=== PATIENT | female | born 1960 | race Caucasian/White ===

== ENCOUNTER 2017-04-16 12:16 | Emergency (ER) | payer OTHER ==
[2017-04-16 12:28] VITALS: BP 119/94; PULSE 109; TEMP 98.3; BMI 25.7
--- NOTE | 2017-04-16 12:42 | PDOC ---
History of Present Illness - General Chief Complaint: Vaginal Sxs Stated Complaint: PRIVATE Time Seen by Provider: 04/16/17 12:30 History Source: Patient Exam Limitations: No Limitations - History of Present Illness Initial Comments: CHIEF COMPLAINT: 56 y/o female c/o vaginal pain for the past 4 days. HISTORY OF PRESENT ILLNESS: She states her vagina is swollen and when she wiped this morning there was a little bit of blood. She states it also hurts when she walks. She denies f/c, n/v/d, CP, SOB, abd pain, back pain, hematuria , dysuria, vaginal itching, abnormal vaginal discharge/bleeding, rashes. She admits she just found out her is a sex addict. She has known about prior incidences of his infidelity and has been tested for all STDs, HIV, etc, but the last time she was tested was 6 months ago and was negative for everything. She is concerned because she has had unprotected sex with him in the past 6 months and she just found out about his recent sexual activities with multiple other partners. Vital signs on arrival are notable for pulse of 109. REVIEW OF SYSTEMS: GENERAL/CONSTITUTIONAL: No fever/chills. No weakness. No weight change. HEAD, EYES, EARS, NOSE AND THROAT: No change in vision. No ear pain or discharge. No sore throat. CARDIOVASCULAR: No chest pain or shortness of breath. RESPIRATORY: No cough, wheezing, or hemoptysis. GASTROINTESTINAL: No abd pain, nausea, vomiting, diarrhea. GENITOURINARY: No dysuria, frequency, or change in urination. +vaginal swelling and pain. MUSCULOSKELETAL: No joint or muscle swelling or pain. No neck or back pain. SKIN: No rash or easy bruising. NEUROLOGIC: No headache, vertigo, loss of consciousness, or loss of sensation. PHYSICAL EXAM: GENERAL: The patient is awake, alert, and fully oriented, in no acute distress. She is well appearing and ambulatory. HEAD: Normal with no signs of trauma. ENT: Pupils equal, round and reactive to light, extraocular movements intact, sclera anicteric, conjunctiva clear. Neck supple. LUNGS: Clear to auscultation bilaterally. Normal excursion. No respiratory distress or use of accessory muscles. CV: RRR, S1/S2, no MRG. Cap refill < 2 sec. ABDOMEN: Soft, non-distended, non-tender even to deep palpation, no hepatomegaly or splenomegaly, no masses. VAGINAL: Very small, erythematous, edematous area inside of left labia minora, close to the clitoris that is TTP. Appears to be a very small abscess. No other lesions, lacerations, area of swelling. EXTREMITIES: Normal range of motion, no edema. NEUROLOGICAL: Normal speech, normal gait. CN II-XII grossly intact. PSYCH: Normal mood, normal affect. SKIN: Warm, dry, normal turgor, no rashes or lesions noted. Past History - Past Medical History Allergies/Adverse Reactions: Allergies Allergy/AdvReac Type Severity Reaction Status Date / Time ibuprofen [From Motrin] Allergy Intermediate Swelling Verified 04/16/17 12:26 Home Medications: Ambulatory Orders Pantoprazole Sodium [Protonix] 40 mg PO DAILY 01/22/13 Oxycodone HCl/Acetaminophen [Percocet 5-325 mg Tablet] 1 combo PO Q4H PRN #0 tablet 04/13/13 Oxycodone HCl/Acetaminophen [Percocet 5-325 mg Tablet] 2 combo PO Q4H PRN #0 tablet 04/13/13 Sulfamethoxazole/Trimethoprim [Bactrim *Ds*] 1 tab PO BID #28 tablet 04/13/13 Sulfamethoxazole/Trimethoprim [Bactrim Ds -] 1 tab PO BID #14 tablet 04/16/17 Varenicline Tartrate [Chantix] 1 each PO ASDIR #1 tab.ds.pk 04/16/17 Anemia: No Asthma: No Cancer: No (rt breast) Cardiac Disorders: No CVA: No COPD: No CHF: No Dementia: No Diabetes: No GI Disorders: Yes (GERD/HX H-PYLORI/ULCER X 01/2012) Disorders: No HTN: No Hypercholesterolemia: No Liver Disease: No Seizures: No Thyroid Disease: No - Surgical History Abdominal Surgery: Yes (2011-[facility]) Appendectomy: No Cardiac Surgery: No Cholecystectomy: No Lung Surgery: No Neurologic Surgery: No Orthopedic Surgery: No - Psycho/Social/Smoking Cessation Hx Suicidal Ideation: No Smoking History: Never smoked Have you smoked in the past 12 months: No Number of Cigarettes Smoked Daily: 10 If you are a former smoker, when did you quit?: 05/2012 Information on smoking cessation initiated: No Hx Alcohol Use: No Drug/Substance Use Hx: No Substance Use Type: None Hx Substance Use Treatment: No *Physical Exam - Vital Signs Last Vital Signs Temp Pulse Resp BP Pulse Ox 98.3 F 109 H 18 119/94 98 04/16/17 12:26 04/16/17 12:26 04/16/17 12:26 04/16/17 12:26 04/16/17 12:26 Medical Decision Making - Medical Decision Making A/P: 56 y/o afebrile female here with very small vaginal abscess and for STD testing. The patient does not want to wait for HIV results so she is refusing that test. Plan is as follows: 1. Labs for herpes and syphillis 2. UA/culture 3. GC/chlamydia The patient will be sent and rx for bactrim. Suggested she apply hot compresses to affected area multiple times per day. She is also asking for a prescription for chantix. Will send. Instructed patient that we will call her with any abnormal results. Pt instructed to return to the ER with any worsening or concerning symptoms and abstain for sexual intercourse for at least 1 week. The patient verbalizes understanding of all instructions, has no further questions and is awaiting discharge. *DC/Admit/Observation/Transfer Diagnosis at time of Disposition: Encounter for screening examination for sexually transmitted disease, Abscess of vagina - Discharge Dispostion Disposition: HOME Condition at time of disposition: Good - Patient Instructions Printed Discharge Instructions: DI for Skin Abscess, Facts About Sexually Transmitted Infections Additional Instructions: Discharge Instructions: -A prescription has been sent to your pharmacy for antibiotics; please take as prescribed -Apply hot compresses to affected area multiple times per day -Someone from the ER will call you with any abnormal lab results -Please follow up with your regular doctor for HIV testing -Return to the ER with any worsening or concerning symptoms
[2017-04-16 13:31] LABS: URINE APPEARANCE CLEAR; URINE BILIRUBIN NEGATIVE (NEGATIVE); URINE BLOOD NEGATIVE (NEGATIVE); URINE COLOR STRAW; URINE GLUCOSE (UA) NEGATIVE (NEGATIVE); URINE KETONE NEGATIVE (NEGATIVE); URINE LEUK ESTERASE TRACE (NEGATIVE); URINE NITRITE NEGATIVE (NEGATIVE); URINE PROTEIN NEGATIVE (NEGATIVE); URINE UROBILINOGEN NEGATIVE mg/dL (0.2-1.0)
[2017-04-16 13:53] LABS: URINE RBC <1 /hpf (0-3); URINE WBC 1 /hpf (3-5)
[2017-04-16 15:04] LABS: HIV 1 & 2 AB NEGATIVE; HIV 1 AGp24 NEGATIVE
[2017-04-19 12:18] LABS: HSV 2 DNA. NEGATIVE
== END 2017-04-16 13:41 | disposition home or self-care (01) ==
LOC: JERFT 12:16
DX: Z11.3 Encounter for screening for infections with a predominantly sexual mode of transmission (principal); N76.0 Acute vaginitis; K21.9 Gastro-esophageal reflux disease without esophagitis; Z98.84 Bariatric surgery status; Z87.891 Personal history of nicotine dependence
CPT/HCPCS: 36415; 81003; 81015; 86593; 87086; 87389; 87491; 87529; 87591; 99281-25

== ENCOUNTER 2017-12-30 09:35 | Day surgery (SDC) | payer SELFPAY ==
[2017-12-27 15:27] VITALS: BMI 25.2
[2017-12-30] MEDS ORDERED: HEPARIN NA (PORCINE) 5,000 UNITS/ML 1ML VIAL ONE (10:27)
[2017-12-30] MEDS ORDERED: BUPIVACAINE HCL/PF 2.5 MG/ML - 30 ML VIAL IJ ONE (12:55)
[2017-12-30] MEDS ORDERED: BACITRACIN 15 GM TUBE TOPICAL OINTMENT ONE (12:55)
[2017-12-30] MEDS ORDERED: oxyCODONE HCL 5 MG TABLET PO PRN (13:10)
[2017-12-30] MEDS ORDERED: ONDANSETRON 4 MG/2 ML VIAL IVPUSH PRN (13:10)
[2017-12-30] MEDS ORDERED: LACTATED RINGERS SOLUTION 1,000 ML IV SCH ×2 (13:15→18:15)
[2017-12-30] MEDS ORDERED: PROPOFOL 20 ML ONE ×3 (13:15→16:29)
[2017-12-30] MEDS ORDERED: MIDAZOLAM HCL 2 MG/2 ML SINGLE DOSE VIAL ONE ×2 (13:15→16:24)
[2017-12-30] MEDS ORDERED: LIDOCAINE HCL/PF 2% SDV 5ML VIAL ONE ×3 (13:17→16:24)
[2017-12-30] MEDS ORDERED: DEXAMETHASONE SOD PHOSPHATE 4 MG/1 ML VIAL ONE ×2 (13:17→14:47)
[2017-12-30] MEDS ORDERED: KETOROLAC TROMETHAMINE 30 MG/1 ML VIAL ONE (13:17)
[2017-12-30] MEDS ORDERED: ROCURONIUM BROMIDE 50 MG/5 ML VIAL ONE ×3 (13:18→16:35)
[2017-12-30] MEDS ORDERED: EPINEPHrine/PF 1 MG/1 ML (1:1,000) AMPULE ONE (13:34)
[2017-12-30] MEDS ORDERED: LIDOCAINE HCL 1%, 10 MG/ML (20ML VIAL) ONE (13:34)
[2017-12-30] MEDS ORDERED: SUCCINYLCHOLINE CHLORIDE 200 MG/10 ML VIAL ONE (14:47)
[2017-12-30] MEDS ORDERED: ONDANSETRON 4 MG/2 ML VIAL ONE ×2 (14:47→16:53)
[2017-12-30] MEDS ORDERED: GLYCOPYRROLATE 0.2 MG/1 ML VIAL ONE (15:23)
[2017-12-30] MEDS ORDERED: NEOSTIGMINE METHYLSULFATE 0.5 MG/ML - 10 ML MDV ONE (15:23)
[2017-12-30] MEDS ORDERED: ePHEDrine SULFATE 50 MG/1 ML AMPULE ONE (16:31)
[2017-12-30] MEDS ORDERED: ONDANSETRON 4 MG/2 ML VIAL IVPB PRN (18:04)
--- NOTE | 2017-12-30 18:18 | OP ---
Operative Note - Note: Operative Date: 12/30/17 Pre-Operative Diagnosis: abdominal deformity Operation: abdominoplasty with flank liposuction Post-Operative Diagnosis: Same as Pre-op Surgeon: Britton Scott Anesthesia: General Drains & Tubes with Location: ANDRES x 2 abdomen
[2017-12-30] MEDS ORDERED: oxyCODONE HCL 5 MG TABLET ONE (19:12)
[2017-12-30] MEDS ORDERED: oxyCODONE HCL 5 MG TABLET PO ONE (19:14)
--- NOTE | 2017-12-30 19:59 | OP ---
DATE OF OPERATION: 12/30/2017 TITLE OF PROCEDURE: Abdominoplasty with bilateral flank liposuction. PREOPERATIVE DIAGNOSIS: Abdominal deformity. POSTOPERATIVE DIAGNOSIS: Abdominal deformity. ATTENDING SURGEON: Britton Kerns MD ASSISTANTS: None. Patient seen in the holding area, counseled on all risks, benefits, and alternatives to the procedure, understands and agrees to proceed. PROCEDURE: She is given 5000 units of subcutaneous heparin preoperatively. CATHLEEN hose and sequential compression stockings are applied in the holding area. She is awake and aware of all incisions and resulting scars. Brought to the operating room and placed in supine position. Position was checked by surgical and anesthesia teams. She was given 2 g of Ancef. After anesthesia is given, she is prepped and draped in standard surgical fashion. A timeout is called. Patient, procedure, side, and sites are verified. Incision is made 4 cm inferior to the infrapannicular crease in order to achieve a lift of the mons pubis. Dissection is carried down to the level of the abdominal wall fascia where all blood vessels are either cautery ligated or suture ligated. Once along the abdominal wall fascia, dissection is carried along the abdominal wall fascia superiorly until the level of the umbilicus. All perforating blood vessels are either cautery ligated or suture ligated. The umbilicus is then circumcised and developed on a fibrofatty stalk to the level of the abdominal wall fascia. Dissection is then continued cephalad to the costal margins bilaterally and xiphoid process in the midline. At this point, a midline plication is performed. It is performed with a series of interrupted, buried No. 1 Prolene figure-of-8 sutures, a row superior to the umbilicus and a second row inferior to the umbilicus. A second layer running locking No. 1 Prolene suture is then applied superior and inferior to the umbilicus. Wide berth is given to the umbilicus for translocation. It is noted that there is still a mid-abdominal bulge laterally on both sides, which is actually more pronounced on the patient's right. This is consistent with her preoperative exam. To address this, a transverse row of plication with a running locking No. 0 Prolene suture with all knots buried is performed on each the right and the left. A more aggressive plication is performed on the right as well as several accessory [id number] Prolene sutures on the right until a symmetric, even contour of the abdomen is achieved. Hemostasis is once again meticulously assured. The wounds are irrigated with normal saline. Patient is then brought to a 30-degree flexed position where the skin fat of the abdominoplasty flaps is transposed and excess is excised. Closure is able to be performed without tension or evidence of tissue ischemia. With the skin tailor tacked with nabeel, the position of the umbilicus is marked. A Star Trek pattern defect is made for umbilical translocation. The umbilicus is translocated through this. It is converted into a triangular pattern with an inferior 6 o'clock notch to receive the 6 o'clock flap of the Star Trek pattern. The apices of these patterns are secured with 3-0 nylon suture. The remainder is closed with a series of interrupted, buried, deep dermal 3-0 Monocryl suture, followed by a running 4-0 chromic suture. Size 10 flat drains are brought out through the surgical wound. The right drain is in the superior extent of the abdomen. The left drain is in the inferior extent of the abdomen. The drains are secured with 2-0 silk drain sutures. Bilateral dog ears are required to be excised which are done on either end of the incision prior to closure. Wetting solution is then infiltrated into either flank. The total amount of wetting solution infiltrated is 600 mL. This is a liter of normal saline with 20 mL of 1% lidocaine plain and 1 ampule 1:1000 epinephrine. The standard infiltration system is used. A full 25 minutes is awaited prior to performing liposuction. During this time, closure of the abdominal wall is performed with a series of interrupted, superficial fascial system, Osei layer of buried 2-0 Vicryl suture, followed by a series of interrupted, buried, deep dermal 3-0 Monocryl sutures. Prior to running a subcuticular, the liposuction is performed with a combination of 3 and 4-mm cannulas. Traditional standard liposuction is used. Total liposuction aspirate is 250 mL of liposuction aspirate from each flank. The endpoint is smooth even contour. The final closure is in the running dermal 4-0 Monocryl V-Loc suture, followed by several interrupted 4-0 nylon sutures within the skin. All tissues are pink and viable at the end of the procedure. The umbilicus is dressed with bacitracin and Xeroform. The abdominal incisions are dressed with 1/2-inch Steri-Strips. Drains were placed to bulb suction. An abdominal binder is applied. Patient is awoken from anesthesia, having tolerated the procedure well. There was no . She is transferred onto a flexed hospital bed. BRITTON KERNS M.D. [id number]
[2017-12-30] MEDS: CEFAZOLIN 1 GM/D5W 1 GM/50 ML BAG IVPB SCH (20:19)
[2017-12-30] MEDS ORDERED: ZOLPIDEM TARTRATE 5 MG TABLET PO PRN (21:07)
[2017-12-30] MEDS: HEPARIN NA (PORCINE) 5,000 UNITS/ML 1ML VIAL SQ SCH (22:03)
[2017-12-30] MEDS: oxyCODONE HCL 5 MG TABLET PO PRN (23:24)
[2017-12-31] MEDS: CEFAZOLIN 1 GM/D5W 1 GM/50 ML BAG IVPB SCH ×2 (02:18→09:30)
[2017-12-31] MEDS: oxyCODONE HCL 5 MG TABLET PO PRN ×3 (04:14→11:59)
[2017-12-31] MEDS: morphine SULFATE 4 MG/ML VIAL IVPUSH PRN ×2 (04:53→09:30)
[2017-12-31] MEDS: HEPARIN NA (PORCINE) 5,000 UNITS/ML 1ML VIAL SQ SCH (09:18)
[2017-12-31] MEDS ORDERED: PANTOPRAZOLE 40 MG TABLET (FP) PO SCH (10:00)
[2017-12-31] MEDS ORDERED: DOCUSATE SODIUM 100 MG CAPSULE (FP) PO PRN (11:13)
--- NOTE | 2017-12-31 11:20 | PN ---
Progress Note (short form) - Note Progress Note: Healing well, no collections, all ANDRES working well. All tissues viable. C/o spasm and GERD Plan for OOB and heparin SQ this morning. REstart protonix and colace Plan for discharge later today.
[2017-12-31] MEDS ORDERED: CYCLOBENZAPRINE HCL 10 MG TABLET (FP) PO SCH (14:00)
[2017-12-31 14:08] VITALS: BP 130/77; PULSE 74; TEMP 99
[2017-12-31] MEDS ORDERED: diphenhydrAMINE HCL 25 MG CAPSULE (FP) PO ONE (15:00)
--- NOTE | 2018-01-05 19:16 | PATH ---
Surgical Pathology Report Patient Name: GAGE DUNAWAY [facility]. Rec. #: [id number] /Age/Gender: 1960 (Age: 57) / F Account: [id number] Location: [facility] Taken: 12/30/2017 Received: 12/30/2017 Reported: 01/05/2018 Physicians: Britton Scott Specimen(s) Received ABDOMINAL FAT AND SKIN Clinical History Cosmetic Final Diagnosis ABDOMINAL FAT AND SKIN, ABDOMINOPLASTY: SKIN AND ADIPOSE TISSUE, DESCRIBED (GROSS EXAMINATION ONLY). Electronically Signed Shauna Narvaez M.D. Gross Description Received in formalin labeled "abdominal fat and skin," is a 1539 g, 40.0 x 19.0 x 3.5 cm aggregate of 2 constantino, unoriented, triangular portions of skin with underlying yellow, lobulated soft tissue. The epidermal surfaces are unremarkable. Sectioning reveals yellow, lobulated adipose tissue. No discrete lesions are identified. No sections are submitted, gross only. /01/01/2018 [facility]01/01/2018
== END 2017-12-31 15:15 | disposition home or self-care (01) ==
LOC: FASU 09:35 → FM/S 18:04 → FASU 12-31 15:15
PROVIDERS: ATTEND Plastic Surgery
PROC: 0J083ZZ Alteration of Abdomen Subcutaneous Tissue and Fascia, Percutaneous Approach (ICD-10-PCS; 2017-12-30)
PROC: 0J080ZZ Alteration of Abdomen Subcutaneous Tissue and Fascia, Open Approach (ICD-10-PCS; principal; 2017-12-30 14:06)
DX: Z41.1 Encounter for cosmetic surgery (principal); M95.8 Other specified acquired deformities of musculoskeletal system; B85.3 Phthiriasis; Z98.84 Bariatric surgery status; Z87.891 Personal history of nicotine dependence; K21.9 Gastro-esophageal reflux disease without esophagitis
CPT/HCPCS: 88300-TC; 94760; J1644

== ENCOUNTER 2022-03-09 04:12 | Day surgery (SDC) | payer BC ==
[2022-03-07 10:18] VITALS: BMI 24.1
[2022-03-09 12:38] VITALS: BP 169/89; PULSE 82; TEMP 98
== END 2022-03-09 12:35 | disposition home or self-care (01) ==
LOC: JASU-ENDO 04:12
PROVIDERS: ATTEND Internal Medicine Gastroenterology
PROC: 0DBP8ZX Excision of Rectum, Via Natural or Artificial Opening Endoscopic, Diagnostic (ICD-10-PCS; 2022-03-09)
PROC: 0DB98ZX Excision of Duodenum, Via Natural or Artificial Opening Endoscopic, Diagnostic (ICD-10-PCS; 2022-03-09)
PROC: 0DB78ZX Excision of Stomach, Pylorus, Via Natural or Artificial Opening Endoscopic, Diagnostic (ICD-10-PCS; 2022-03-09)
PROC: 0DB28ZX Excision of Middle Esophagus, Via Natural or Artificial Opening Endoscopic, Diagnostic (ICD-10-PCS; 2022-03-09)
PROC: 0DB38ZX Excision of Lower Esophagus, Via Natural or Artificial Opening Endoscopic, Diagnostic (ICD-10-PCS; 2022-03-09)
PROC: 0D758ZZ Dilation of Esophagus, Via Natural or Artificial Opening Endoscopic (ICD-10-PCS; 2022-03-09)
PROC: 0DBN8ZX Excision of Sigmoid Colon, Via Natural or Artificial Opening Endoscopic, Diagnostic (ICD-10-PCS; principal; 2022-03-09 09:00)
DX: Z12.11 Encounter for screening for malignant neoplasm of colon (principal); D12.5 Benign neoplasm of sigmoid colon; D12.8 Benign neoplasm of rectum; K22.2 Esophageal obstruction; K25.3 Acute gastric ulcer without hemorrhage or perforation; K44.9 Diaphragmatic hernia without obstruction or gangrene; Z86.010 Personal history of colon polyps
CPT/HCPCS: 88305-TC; 88342-TC

== ENCOUNTER 2022-03-27 14:33 | Emergency (ER) | payer BC ==
[2022-03-27 15:01] VITALS: TEMP 98.1; BMI 25.0
[2022-03-27] MEDS ORDERED: SODIUM CHLORIDE 0.9% 500 ML INFUS.BAG IV ONE (16:41)
[2022-03-27] MEDS ORDERED: ONDANSETRON 4 MG/2 ML VIAL IVPUSH ONE (16:42)
[2022-03-27 20:06] VITALS: BP 142/89; PULSE 89
== END 2022-03-27 20:06 | disposition home or self-care (01) ==
LOC: JER 14:33
PROC: 3E033GC Introduction of Other Therapeutic Substance into Peripheral Vein, Percutaneous Approach (ICD-10-PCS; principal; 2022-03-27)
DX: U07.1 COVID-19 (principal)
CPT/HCPCS: 0241U-QW; 99284-25

== ENCOUNTER 2024-07-23 05:32 | Day surgery (SDC) | payer OTHER ==
[2024-07-21 12:26] VITALS: BMI 25.0
[2024-07-23] MEDS ORDERED: ACETAMINOPHEN 500 MG TABLET (FP) PO PRN (09:06)
[2024-07-23] MEDS: LIDOCAINE HCL 1% PRESERVATIVE FREE - 30ML VIAL IJ ONE (14:45)
[2024-07-23] MEDS: IOHEXOL 180 MG/1 ML ML IJ ONE (14:47)
[2024-07-23] MEDS: DEXAMETHASONE SOD PHOSPHATE 10 MG/1 ML VIAL IVPUSH ONE (14:48)
[2024-07-23 15:16] VITALS: BP 136/77; PULSE 84; RESP 18; TEMP 97
== END 2024-07-23 15:24 | disposition home or self-care (01) ==
LOC: JASU-SURG 05:32
PROVIDERS: ATTEND Pain Medicine Pain Medicine
PROC: 3E0R3BZ Introduction of Anesthetic Agent into Spinal Canal, Percutaneous Approach (ICD-10-PCS; 2024-07-23)
PROC: 3E0R33Z Introduction of Anti-inflammatory into Spinal Canal, Percutaneous Approach (ICD-10-PCS; principal; 2024-07-23 14:30)
DX: M48.061 Spinal stenosis, lumbar region without neurogenic claudication (principal); M54.16 Radiculopathy, lumbar region
CPT/HCPCS: 76000-TC-FY; J1100

== ENCOUNTER 2024-09-25 04:33 | Day surgery (SDC) | payer OTHER ==
[2024-09-22 11:52] VITALS: BMI 26.1
[2024-09-25 13:59] VITALS: TEMP 98
[2024-09-25 14:01] VITALS: RESP 17
[2024-09-25 14:03] VITALS: BP 141/75; PULSE 74
== END 2024-09-25 12:15 | disposition home or self-care (01) ==
LOC: JASU-ENDO 04:33
PROVIDERS: ATTEND Student in an Organized Health Care Education/Training Program
PROC: 0DBK8ZX Excision of Ascending Colon, Via Natural or Artificial Opening Endoscopic, Diagnostic (ICD-10-PCS; 2024-09-25)
PROC: 0DBL8ZX Excision of Transverse Colon, Via Natural or Artificial Opening Endoscopic, Diagnostic (ICD-10-PCS; 2024-09-25)
PROC: 0DBM8ZX Excision of Descending Colon, Via Natural or Artificial Opening Endoscopic, Diagnostic (ICD-10-PCS; 2024-09-25)
PROC: 0DB68ZX Excision of Stomach, Via Natural or Artificial Opening Endoscopic, Diagnostic (ICD-10-PCS; 2024-09-25)
PROC: 0DB78ZX Excision of Stomach, Pylorus, Via Natural or Artificial Opening Endoscopic, Diagnostic (ICD-10-PCS; 2024-09-25)
PROC: 0DBP8ZX Excision of Rectum, Via Natural or Artificial Opening Endoscopic, Diagnostic (ICD-10-PCS; principal; 2024-09-25 10:15)
DX: Z12.11 Encounter for screening for malignant neoplasm of colon (principal); D12.2 Benign neoplasm of ascending colon; D12.3 Benign neoplasm of transverse colon; D12.4 Benign neoplasm of descending colon; D12.8 Benign neoplasm of rectum; K20.90 Esophagitis, unspecified without bleeding; K29.50 Unspecified chronic gastritis without bleeding; Z86.0100 Personal history of colon polyps, unspecified
CPT/HCPCS: 88305-TC; 88342-TC